=== PATIENT | male | born 1980 | race Caucasian/White ===

== ENCOUNTER → 2016-03-30 | Outpatient (CLI) | payer MEDICARE ==
[~2016-03-30] MED LIST: /QUET10TA OR; DICL50TA2 PO; EFFE150C OR; EFFE37.527 OR; HYDR-3719 PO; LAMI25TA OR; LISI40TAB PO; LYRI100C10 PO; METH75TA PO; PERC5TAB6 PO; PRAZ1CAP PO; PROT20TA11 PO; SERO50TA PO; SERT25TA85 PO; TIZA4CAP3 PO; TOPA100T8 PO; TRAM50TA2 OR; TRAM50TA2 PO; TYLE325T5 PO; VOLT100T2 PO; ZANA4TAB PO; [UNRECOGNIZED DRUG - CODE] PO; [UNRECOGNIZED DRUG - REMARK]
--- NOTE | 2016-04-03 00:17 | ECWPNPC ---
PATIENT NAME: EMMY SHEA : 1980 GENDER: MALE VISIT DATE: 03/30/2016 DISCHARGE DATE: 03/30/16 1346 VISIT LOCKED DATE TIME: PHYSICIAN: BERNA RAMIREZ RESOURCE: BERNA RAMIREZ REASON FOR APPOINTMENT 1. W/C NECK PAIN HISTORY OF PRESENT ILLNESS HISTORY OF PRESENT ILLNESS: PAIN THE PATIENT DESCRIBES THE PAIN... 35 YEAR OLD MALE PATIENT WITH HISTORY OF CHRONIC NECK PAIN. PATIENT DESCRIBES THE PAIN ACHING, BURNING, SHARP, STABBING, THROBBING, SHOOTING, AND HAVING IT ALL THE TIME WITH A PAIN SCORE OF 2/10 TODAY WHILE USING THE MEDICATIONS. MR. SHEA WAS HURT IN A WORK RELATED INJURY WHEN A PIPE FELL ON HIS NECK ON 08/26/12. PATIENT IS CURRENTLY USING NORCO, TIZANIDINE, AND IBUPROFEN AND STATES THAT THE MEDICATION DOES HELP TO TAKE THE EDGE OFF. MRS. SHEA STATES THAT THE MEDICATION KEEPS HIM FUNCTIONAL AND ABLE TO DO EVERY DAY ACTIVITIES. PATIENT REPORTS HAVING NUMBNESS DOWN BOTH ARMS BUT MAINLY THE RIGHT. PATIENT STATES THAT LOOKING IN CERTAIN DIRECTIONS FOR EXTENDED PERIODS OF TIME INCREASES THE PAIN IN HIS CERVICAL AREA. AT THIS TIME THE ONLY THING THAT HELPS TO RELIEVE THE PAIN IS INTERVENTIONS AND MEDICATION MANAGEMENT. PATIENT DENIES UNEXPLAINABLE WEIGHT LOSS, FEVER, CHILLS, NEW CHANGES ON HIS URINARY OR BOWEL CONTROL. FALL RISK SCREENING: SCREENING :NO FALLS IN THE PAST YEAR CURRENT MEDICATIONS TAKING NORCO 10-325 MG TABLET 1 TABLET ORALLY CODE D CHRONIC PAIN EVERY 8 HRS PRN PAIN MDD=3, NOTES: 10-04-15 0900 WITH SIP WATER TAKING TIZANIDINE HCL 4 MG CAPSULE 1 TABLET NEEDED ORALLY FOR SPASMS AND PAIN BEFORE BEDTIME CAN REPEAT IN HRS MDD2, NOTES: 10-03-15 TAKING IBUPROFEN 800 MG TABLET 1 TABLET ORALLY WITH FOOD EVERY 6 HOURS NEEDED FOR PAIN MDD3, NOTES: 10-02 TAKING SERTRALINE HCL 50 MG TABLET 1 TABLET ORALLY ONCE A DAY TAKING ANUSOL-HC 2.5 % CREAM 1 APPLICATION TO AFFECTED AREA RECTAL TWICE A DAY TAKING LISINOPRIL 10 MG TABLET 1 TABLET ORALLY TWICE DAILY NOT-TAKING HYDROXYZINE HCL 50 MG TABLET 3 TABLETS NEEDED ORALLY ONCE BEFORE BED MEDICATION LIST REVIEWED AND RECONCILED WITH THE PATIENT PAST MEDICAL HISTORY HYPERTENSION HERNIATED DISC L5-S1 WITH RADICULOPATHY PTSD AVM OF RIGHT PULMONARY ARTERY ANXIETY DEPRESSION ALLERGIES MORPHINE: SEVERE ABDOMINAL PAIN: SIDE EFFECTS SURGICAL HISTORY COLONOSCOPY 2011-POSITIVE FOR HEMRRHOIDS CERVICAL DISECTOMY C5-C6 C6-C7 2012 CERVICAL C4-C5 2015 FAMILY HISTORY NO FAMILY HISTORY DOCUMENTED. SOCIAL HISTORY GENERAL: TOBACCO USE ARE YOU A:NONSMOKER CHEWS LEARNING BARRIERS / SPECIAL NEEDS ORIENTED TO PLAN OF CARE: PATIENT, PAIN MANAGEMENT PATIENT, ORIENTED TO PLAN OF CARE: PATIENT, PAIN MANAGEMENT PATIENT. NEW PATIENT PAIN DIARY TODAY'S VISITNOTES FROM 0-10, WHAT LEVEL IS YOUR PAIN TODAY?0 PAIN CLINIC PFS, CLERGY, PUBLIC HEALTH REFERRALS PFS REFERRAL NEEDED?NO CLERGY REFERRAL NEEDED?NO PUBLIC HEALTH REFERRAL NEEDED?NO WAS THE PROVIDER NOTIFIED OF ANY PERTINENT INFO?NO PFS REFERRAL NEEDED?NO CLERGY REFERRAL NEEDED?NO PUBLIC HEALTH REFERRAL NEEDED?NO WAS THE PROVIDER NOTIFIED OF ANY PERTINENT INFO?NO HOSPITALIZATION/MAJOR DIAGNOSTIC PROCEDURE NO HOSPITALIZATION HISTORY. REVIEW OF SYSTEMS CONSTITUTIONAL: ANY CHANGE IN YOUR MEDICAL CONDITION? NO . CHILLS NO . FEVER NO . INFECTION: DO YOU HAVE NEW INFECTIONS? NO . DO YOU HAVE HISTORY OF MRSA? NO . MUSCULOSKELETAL: ANY NEW PATTERNS OF PAIN OR NUMBNESS? NO . GASTROENTEROLOGY: ANY NEW CHANGE IN BOWEL CONTROL? NO . GENITOURINARY: ANY NEW CHANGE IN BLADDER CONTROL? NO . IS THERE A CHANCE YOU COULD BE ? NO . HEMATOLOGY/LYMPH: DO YOU TAKE ANY BLOOD THINNERS? (FOR EXAMPLE- COUMADIN, PLAVIX, AGGRENOX, PLATEL, PRADAXA, OR XARELTO) NO . WHEN WAS YOUR LAST DOSE? DATE: TIME: . NEUROLOGY: HAVE YOU FALLEN IN THE PAST 6 MONTHS? YES PT STATES THAT WITH HIS NEUROPATHY THAT IT IS HARD TO GRAB THE RAILING WHEN GOING DOWN THE STAIRS AT NIGHT AND THAT IS WHY HE HAS HAD THE FALLS . ANY NEW EXTREMITY NUMBNESS OR WEAKNESS? NO . CARDIOLOGY: DO YOU HAVE A PACEMAKER OR DEFIBRILLATOR? NO . RESPIRATORY: HAVE YOU BEEN SICK IN THE PAST WEEK? NO . FEVER NO . FLU LIKE SYMPTOMS? NO . COUGH NO . INTEGUMENTARY: DO YOU HAVE ANY RASHES OR OPEN SORES? NO . ALLERGIC/IMMUNO: ARE YOU ALLERGIC TO SHELLFISH OR IV DYE? NO . ANY NEW ALLERGIES? NO . PSYCHIATRIC: DO YOU HAVE THOUGHTS OF HURTING YOURSELF OR SOMEONE ELSE? NO . ARE YOU ABUSED, NEGLECTED, OR IN AN UNSAFE ENVIRONMENT? NO . ENDOCRINOLOGY: ARE YOU DIABETIC? NO . OTHER: DO YOU NEED ANY PRESCRIPTIONS? YES INQUIRING ABOUT CHANGING PAIN MEDS/DIARHEA . IF YES, PLEASE LIST: ____ . ANY NEW PROBLEMS WITH YOUR MEDICATIONS? NO . WHEN DID YOU LAST EAT? ____ . WHEN DID YOU LAST DRINK? ____ . WHAT DID YOU LAST DRINK? ____ . NAME OF PERSON DRIVING YOU HOME? ____ . DO YOU HAVE ANY OTHER QUESTIONS OR CONCERNS NO . REVIEWED BY: PROVIDER: BERNA RAMIREZ MD . VITAL SIGNS WT 315 LBS, HT 72 IN, BMI 42.72 INDEX, BP 149/86 MM HG, HR 98 /MIN, RR 18 /MIN, TEMP 97.4 F, OXYGEN SAT % 98%, NA INITIALS SC 10:03. EXAMINATION : PATIENT IS ALERT O X 3 AND COOPERATIVE. TENDERNESS IN THE RIGHT CERVICAL AREA AND PARASPINAL MUSCLE GROUP. MRI OF THE CERVICAL SPINE DONE ON 11/16/15 SHOWS SPINAL FUSION AT C5-C7, SPONDYLOSIS AT C4-C5 THROUGH C7-T1, AND A DISC PROTRUSION AT C7-T1. 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, CERVICAL REGION - M47.812 SPONDYLOSIS WITHOUT MYELOPATHY OR RADICULOPATHY, CERVICOTHORACIC REGION - M47.813 TREATMENT POSTLAMINECTOMY SYNDROME, NOT ELSEWHERE CLASSIFIED START OXYCODONE HCL TABLET, 5 MG, 1 TABLET, ORALLY CODE D CHRONIC PAIN, EVERY 6 HRS NEEDED FOR PAIN MDD3, 60 DAYS, 180, REFILLS 0 REFILL TIZANIDINE HCL TABLET, 4 MG, 1 TABLET NEEDED, ORALLY, BEFORE BEDTIME CAN REPEAT IN 4 HRS MDD2, 30 DAY(S), 60, REFILLS 2, NOTES: 10-03-15 REFILL IBUPROFEN TABLET, 800 MG, 1 TABLET, ORALLY WITH FOOD, EVERY 6 HOURS NEEDED FOR PAIN MDD3, 30 DAY(S), 75, REFILLS 2, NOTES: 10-02 NOTES: WE DISCUSSED SEVERAL ISSUES WITH MR. SHEA'S PAIN MANAGEMENT CASE. AT THIS TIME THE PATIENT WILL START USING OXYCODONE INSTEAD OF THE HYDROCODONE. PATIENT REPORTED HAVING DIARRHEA SINCE USING THE HYDROCODONE SO WE WILL TRY THE OXYCODONE TO SEE IF WILL AID WITH THE DIARRHEA. PATIENT WAS ADVISED TO BE VERY CAREFUL WITH THE MEDICATION. PATIENT DENIES ABUSE OF THE MEDICATION, DENIES USE OF ILLEGAL SUBSTANCES, AND STATES THAT HE IS ONLY USING THE MEDICATION FOR PAIN MANAGEMENT AT THIS TIME. URINE TOXICOLOGY DONE IN APRIL 2015 SHOWS CONSISTENT RESULTS WITH THE PATIENT'S MEDICATION LIST. WE DISCUSSED INTERVENTIONS AND AT THIS TIME WE WILL MOVE FORWARD WITH THE CERVICAL FACET BLOCK ONCE WE HAVE APPROVAL FROM THE INSURANCE COMPANY. WE DISCUSSED THE RISKS, BENEFITS, AND ALTERNATIVES TO THE INJECTION AND THE PATIENT WOULD LIKE TO PROCEED AT THIS TIME. PROCEDURES PN WORKMANS' COMP OPINION IN YOUR OPINION, WAS THE INCIDENT THAT THE PATIENT DESCRIBED THE COMPETENT MEDICAL CAUSE OF THIS INJURY/ILLNESS? YES ARE THE PATIENT'S COMPLAINTS CONSISTENT WITH HIS/HER HISTORY OF THE INJURY/ILLNESS? YES IS THE PATIENT'S HISTORY OF THE INJURY/ILLNESS CONSISTENT WITH YOUR OBJECTIVE FINDING? YES WHAT IS THE PERCENTAGE OF TEMPORARY IMPAIRMENT? TOTAL = 100% IS THE PATIENT WORKING? NO DOCTOR ON SITE: BERNA NASH MD PREVENTIVE MEDICINE PAIN CLINIC TEACHING: MEDICATIONS MEDICATION CHANGE PT STARTED ON OXYCODONE AND D/C HYDROCODONE. PROCEDURE TEACHING PRE/PROCEDURE EDUCATION PROVIDED/PENDING AUTHORIZATION. PROCEDURE CODES FA211 ESTABILISHED PATIENT [facility] FACILITY CHARGE G8427 DOC MEDS VERIFIED W/PT OR RE G8730 PAIN ASSESS POS TOOL F/U PLAN DOC FOLLOW UP 3 WEEKS ELECTRONICALLY SIGNED BY BERNA RAMIREZ MD ON 04/01/2016 AT 07:28 PM EST DISCLAIMER : THIS IS A VISIT SUMMARY EXTRACTED FROM THE [employer] CHART. IT IS NOT A COPY OF THE [employer] PROGRESS NOTE. VANE
== END ==
LOC: M PAIN 10:00
PROVIDERS: ATTEND Anesthesiology
DX: Z09 Encounter for follow-up examination after completed treatment for conditions other than malignant neoplasm (principal); G89.29 Other chronic pain; M96.1 Postlaminectomy syndrome, not elsewhere classified; M47.812 Spondylosis without myelopathy or radiculopathy, cervical region; M47.813 Spondylosis without myelopathy or radiculopathy, cervicothoracic region; I10 Essential (primary) hypertension; I28.8 Other diseases of pulmonary vessels; F43.10 Post-traumatic stress disorder, unspecified; F41.9 Anxiety disorder, unspecified; Z88.5 Allergy status to narcotic agent; Z79.891 Long term (current) use of opiate analgesic; Z79.1 Long term (current) use of non-steroidal anti-inflammatories (NSAID); Z79.899 Other long term (current) drug therapy

== ENCOUNTER 2016-05-12 18:45 | Emergency (ER) | payer MEDICARE ==
[~2016-05-12] VITALS: Ht 185.4 cm; Wt 122.5 kg
[~2016-05-12 18:45] MED LIST changes: +SERT25TA PO; -SERT25TA85 PO
[2016-05-12] MEDS ORDERED: TIZA4CAP3 (18:51)
[2016-05-12] MEDS ORDERED: OXAY1TAB PO (18:51)
[2016-05-12] MEDS ORDERED: LISI10TA4 (18:51)
[2016-05-12] MEDS ORDERED: ONDANSETRON 4MG/2ML VIAL (J2405) IV ONE (19:15)
[2016-05-12] MEDS ORDERED: NS 1,000 ML IV ONE (19:15)
[2016-05-12] MEDS ORDERED: MORPHINE 4 MG/ML 1ML SYRINGE IV ONE (19:15)
[2016-05-12 19:24] LABS: BASO % 0.4 % (0.0-1.0); EOS # 0.1 K/mm3 (0.0-0.50); EOS % 1.5 % (0.0-3.0); LARGE UNSTAINED CELL # 0.2 K/mm3 (0.0-0.4); LARGE UNSTAINED CELL % 1.8 % (0.0-4.0); LYMPH # 2.4 K/mm3 (1.5-4.5); LYMPH % 23.3 % (24.0-44.0); MEAN CORPUSCULAR HEMOGLOBIN 27.6 pg (27.0-33.0); MEAN CORPUSCULAR HGB CONC 31.7 g/dl (32.0-36.5); MONO # 0.6 K/mm3 (0.0-0.8); MONO % 6.1 % (0.0-5.0); NEUTROPHILS # 6.3 K/mm3 (1.8-7.7); NEUTROPHILS % 66.9 % (36.0-66.0); PLATELET COUNT, AUTOMATED 373 k/mm3 (150-450); RED CELL DISTRIBUTION WIDTH 13.1 % (11.5-14.5); WHITE BLOOD COUNT 9.4 K/mm3 (4.0-10.0)
[2016-05-12 19:45] LABS: ALBUMIN 4.3 GM/DL (3.2-5.2); ALBUMIN/GLOBULIN RATIO 1.26 (1.00-1.93); ALKALINE PHOSPHATASE 111 U/L (45-117); ALT/SGPT 61 U/L (12-78); AMYLASE 100 U/L (25-115); ANION GAP 11 MEQ/L (8-16); AST/SGOT 26 U/L (15-37); BILIRUBIN,DIRECT < 0.1 MG/DL (0.0-0.2); BILIRUBIN,TOTAL 0.3 MG/DL (0.2-1.0); BLOOD UREA NITROGEN 17 MG/DL (7-18); CALCIUM LEVEL 8.9 MG/DL (8.5-10.1); CARBON DIOXIDE LEVEL 24 MEQ/L (21-32); CHLORIDE LEVEL 106 MEQ/L (98-107); CREATININE FOR GFR 0.92 MG/DL (0.70-1.30); GLOMERULAR FILTRATION RATE > 60.0 (>60); GLUCOSE, FASTING 90 MG/DL (70-105); SODIUM LEVEL 141 MEQ/L (136-145); TOTAL PROTEIN 7.7 GM/DL (6.4-8.2)
--- NOTE | 2016-05-12 20:10 | REP ---
Clinical: Right upper quadrant pain. Technique: Real time antunez scale ultrasound examination using curved array transducer. Findings: Liver and visualized pancreas are normal in contour, size, echogenicity without focal hepatic or pancreatic lesions identified. The gallbladder is contracted, but without obvious gallstones, wall thickening or pericholecystic fluid. No biliary ductal dilatation is appreciated and the common bile duct measures 3.4 mm diameter. The right kidney is normal in reniform shape without hydronephrosis and measures 12.7 x 5.8 x 5.2 cm. Impression: Contracted gallbladder without obvious gallstones or sonographic evidence to suggest acute cholecystitis. Clinical correlation recommended. Signed by Néstor Reid MD 05/12/2016 08:01 P
[2016-05-12] MEDS ORDERED: MORPHINE 2 MG/ML 1ML SYRINGE IV ONE (21:00)
[2016-05-12] MEDS ORDERED: ZOFR4TAB3 PO (21:25)
[2016-05-12] MEDS ORDERED: KETO10TAB PO (21:25)
[2016-05-12 21:52] VITALS: BP 129/81
== END 2016-05-12 21:53 | disposition home or self-care (01) ==
LOC: M ED 19:34
DX: K80.50 Calculus of bile duct without cholangitis or cholecystitis without obstruction (principal); I10 Essential (primary) hypertension; F33.9 Major depressive disorder, recurrent, unspecified; Z79.899 Other long term (current) drug therapy
CPT/HCPCS: 76705; 80048; 80076; 81001; 82150; 83690; 85025; 96361; 96374; 96375; 96376; 99283; J2405

== ENCOUNTER → 2016-05-25 | Outpatient (CLI) | payer OTHER, MEDICARE ==
[~2016-05-25] MED LIST changes: +BUPIVACAINE HCL 0.25% 30 ML VIAL As Ordered ONE; +ISOVUE-M 300 61% 15ML VIAL (Q9967) As Ordered ONE; +KETO10TAB PO; +LIDOCAINE 1% SDV INJ 30 ML VIAL As Ordered ONE; +LISI10TA4; +OXAY1TAB PO; +TIZA4CAP3; +TRIAMCINOLONE ACETONIDE SUSP 40 MG/ML VIAL (J3301) As Ordered ONE; +ZOFR4TAB3 PO
--- NOTE | 2016-06-03 23:26 | ECWPNPC ---
PATIENT NAME: EMMY SHEA : 1980 GENDER: MALE VISIT DATE: 05/25/2016 DISCHARGE DATE: 05/25/16 1403 VISIT LOCKED DATE TIME: PHYSICIAN: BERNA RAMIREZ RESOURCE: BERNA RAMIREZ REASON FOR APPOINTMENT 1. NECK PAIN W/C HISTORY OF PRESENT ILLNESS HISTORY OF PRESENT ILLNESS: PAIN THE PATIENT DESCRIBES THE PAIN... 35 YEAR OLD MALE PATIENT WITH HISTORY OF CHRONIC NECK PAIN. PATIENT DESCRIBES THE PAIN ACHING, BURNING, SHARP, STABBING, THROBBING, SHOOTING, AND HAVING IT ALL THE TIME WITH A PAIN SCORE OF 2/10 TODAY WHILE USING THE MEDICATIONS. MR. SHEA WAS HURT IN A WORK RELATED INJURY WHEN A PIPE FELL ON HIS NECK ON 08/26/12 WHILE WORKING AT [employer]. PATIENT IS CURRENTLY USING OXYCODONE, TIZANIDINE, AND IBUPROFEN AND STATES THAT THE MEDICATION DOES HELP TO TAKE THE EDGE OFF. MRS. SHEA STATES THAT THE MEDICATION KEEPS HIM FUNCTIONAL AND ABLE TO DO EVERY DAY ACTIVITIES. PATIENT REPORTS HAVING NUMBNESS DOWN BOTH ARMS BUT MAINLY THE RIGHT. PATIENT STATES THAT LOOKING IN CERTAIN DIRECTIONS FOR EXTENDED PERIODS OF TIME INCREASES THE PAIN IN HIS CERVICAL AREA. AT THIS TIME THE ONLY THING THAT HELPS TO RELIEVE THE PAIN IS MEDICATION MANAGEMENT. PATIENT DENIES UNEXPLAINABLE WEIGHT LOSS, FEVER, CHILLS, NEW CHANGES ON HIS URINARY OR BOWEL CONTROL. FALL RISK SCREENING: SCREENING :NO FALLS IN THE PAST YEAR CURRENT MEDICATIONS TAKING ANUSOL-HC 2.5 % CREAM 1 APPLICATION TO AFFECTED AREA RECTAL TWICE A DAY TAKING LISINOPRIL 10 MG TABLET 1 TABLET ORALLY TWICE DAILY, NOTES: 05/24/16 0800 TAKING TIZANIDINE HCL 4 MG TABLET 1 TABLET NEEDED ORALLY BEFORE BEDTIME CAN REPEAT IN 4 HRS MDD2, NOTES: 05/24/16 2200 TAKING OXYCODONE HCL 5 MG TABLET 1 TABLET ORALLLY EVERY 6 HRS NEEDED FOR PAIN MDD3, NOTES: 05/24/16 0600 TAKING ZANTAC 150 MG TABLET 1 TABLET AT BEDTIME ORALLY ONCE A DAY NOT-TAKING IBUPROFEN 800 MG TABLET 1 TABLET ORALLY WITH FOOD EVERY 6 HOURS NEEDED FOR PAIN MDD3 NOT-TAKING HYDROXYZINE HCL 50 MG TABLET 3 TABLETS NEEDED ORALLY ONCE BEFORE BED DISCONTINUED NORCO 10-325 MG TABLET 1 TABLET ORALLY CODE D CHRONIC PAIN EVERY 8 HRS PRN PAIN MDD=3 DISCONTINUED SERTRALINE HCL 50 MG TABLET 1 TABLET ORALLY ONCE A DAY MEDICATION LIST REVIEWED AND RECONCILED WITH THE PATIENT PAST MEDICAL HISTORY HYPERTENSION HERNIATED DISC L5-S1 WITH RADICULOPATHY PTSD AVM OF RIGHT PULMONARY ARTERY ANXIETY DEPRESSION ALLERGIES MORPHINE: SEVERE ABDOMINAL PAIN: SIDE EFFECTS SURGICAL HISTORY COLONOSCOPY 2010-POSITIVE FOR HEMRRHOIDS CERVICAL DISECTOMY C5-C6 C6-C7 2013 CERVICAL C4-C5 2015 FAMILY HISTORY NO FAMILY HISTORY DOCUMENTED. SOCIAL HISTORY GENERAL: PAIN CLINIC PFS, CLERGY, PUBLIC HEALTH REFERRALS CLERGY REFERRAL NEEDED?NO WAS THE PROVIDER NOTIFIED OF ANY PERTINENT INFO?NO PFS REFERRAL NEEDED?NO PUBLIC HEALTH REFERRAL NEEDED?NO PATIENT: ____. HOSPITALIZATION/MAJOR DIAGNOSTIC PROCEDURE NO HOSPITALIZATION HISTORY. REVIEW OF SYSTEMS CONSTITUTIONAL: ANY CHANGE IN YOUR MEDICAL CONDITION? YES PT REPORTS FLARE UP OF CHOLECYSTITIS, SEEING DR. MCCAULEY, TO HAVE FRANK UPON RETURN FROM VACATION. REPORTED TO DR. RAMIREZ. . CHILLS NO . FEVER NO . INFECTION: DO YOU HAVE NEW INFECTIONS? NO . DO YOU HAVE HISTORY OF MRSA? NO . MUSCULOSKELETAL: ANY NEW PATTERNS OF PAIN OR NUMBNESS? NO . GASTROENTEROLOGY: ANY NEW CHANGE IN BOWEL CONTROL? NO . GENITOURINARY: ANY NEW CHANGE IN BLADDER CONTROL? NO . IS THERE A CHANCE YOU COULD BE ? NO . HEMATOLOGY/LYMPH: DO YOU TAKE ANY BLOOD THINNERS? (FOR EXAMPLE- COUMADIN, PLAVIX, AGGRENOX, PLATEL, PRADAXA, OR XARELTO) NO . WHEN WAS YOUR LAST DOSE? DATE: TIME: . NEUROLOGY: HAVE YOU FALLEN IN THE PAST 6 MONTHS? NO . ANY NEW EXTREMITY NUMBNESS OR WEAKNESS? NO . CARDIOLOGY: DO YOU HAVE A PACEMAKER OR DEFIBRILLATOR? NO . RESPIRATORY: HAVE YOU BEEN SICK IN THE PAST WEEK? YES PT REPORTS NON-PRODUCTIVE COUGH, DENIES FEVER, SORE THROAT, ACHES OR OTHER SYMPTOMS. REPORTED TO DR. RAMIREZ. . FEVER NO . FLU LIKE SYMPTOMS? NO . COUGH NO . INTEGUMENTARY: DO YOU HAVE ANY RASHES OR OPEN SORES? NO . ALLERGIC/IMMUNO: ARE YOU ALLERGIC TO SHELLFISH OR IV DYE? NO . ANY NEW ALLERGIES? NO . PSYCHIATRIC: DO YOU HAVE THOUGHTS OF HURTING YOURSELF OR SOMEONE ELSE? NO . ARE YOU ABUSED, NEGLECTED, OR IN AN UNSAFE ENVIRONMENT? NO . ENDOCRINOLOGY: ARE YOU DIABETIC? NO . OTHER: DO YOU NEED ANY PRESCRIPTIONS? NO . IF YES, PLEASE LIST: ____ . ANY NEW PROBLEMS WITH YOUR MEDICATIONS? NO . WHEN DID YOU LAST EAT? ____05/24/16 1600 . WHEN DID YOU LAST DRINK? ____05/24/16 2200 . WHAT DID YOU LAST DRINK? ____JUICE . NAME OF PERSON DRIVING YOU HOME? ____ . DO YOU HAVE ANY OTHER QUESTIONS OR CONCERNS NO . REVIEWED BY: PROVIDER: BERNA RAMIREZ MD . VITAL SIGNS WT 306.8 LBS, HT 72 IN, BMI 41.61 INDEX, BP 133/78 MM HG, HR 84 /MIN, RR 18 /MIN, TEMP 97.8 F, OXYGEN SAT % 98%, SAFE IN ENV? (Y/N) YES, NA INITIALS AR 09:58, REVIEWED BY: HECTOR. EXAMINATION : PATIENT IS ALERT O X 3 AND COOPERATIVE. TENDERNESS IN THE RIGHT CERVICAL AREA AND PARASPINAL MUSCLE GROUP. MRI OF THE CERVICAL SPINE DONE ON 11/16/15 SHOWS SPINAL FUSION AT C5-C7, SPONDYLOSIS AT C4-C5 THROUGH C7-T1, AND A DISC PROTRUSION AT C7-T1. 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 SHEA'S PAIN MANAGEMENT CASE. PATIENT WILL CONTINUE WITH THE SAME MEDICATION REGIME BEFORE. PATIENT DENIES ABUSE OF ANY MEDICATION, DENIES USE OF ILLEGAL SUBSTANCES, AND STATES THAT HE IS ONLY USING THE MEDICATION FOR PAIN MANAGEMENT. PATIENT USING THE OXYCODONE FOR SOMATIC PAIN AND TIZANIDINE FOR THE MUSCLE SPASMS. URINE TOXICOLOGY REPORT DONE ON 03/30/16 SHOWS CONSISTENT RESULTS WITH THE PATIENT'S MEDICATION LIST. PATIENT BROUGHT ALL MEDICATIONS TO TODAY'S VISIT IN THEIR ORIGINAL BOTTLES. PATIENT REPORTS INTERVENTIONS NOT AIDING IN PAIN RELIEF SO NONE WILL BE HELD AT THIS TIME. PATIENT WILL FOLLOW UP IN 7 WEEKS BUT WAS ADVISED TO CALL IF HIS PAIN WORSENS. INSTRUCTIONS WERE GIVEN, QUESTIONS WERE ANSWERED, PATIENT REPORTS UNDERSTANDING AND AGREES WITH THE PLAN. I, SHAQ STREET, DOCUMENTED THE ABOVE INFORMATION ACTING A SCRIBE FOR DR. RAMIREZ. I HAVE REVIEWED THE ABOVE DOCUMENT, WRITTEN BY SHAQ COXIBMeryl AND I VERIFY THAT IT IS ACCURATE. PROCEDURES PN WORKMANS' COMP OPINION IN YOUR OPINION, WAS THE INCIDENT THAT THE PATIENT DESCRIBED THE COMPETENT MEDICAL CAUSE OF THIS INJURY/ILLNESS? YES ARE THE PATIENT'S COMPLAINTS CONSISTENT WITH HIS/HER HISTORY OF THE INJURY/ILLNESS? YES IS THE PATIENT'S HISTORY OF THE INJURY/ILLNESS CONSISTENT WITH YOUR OBJECTIVE FINDING? YES WHAT IS THE PERCENTAGE OF TEMPORARY IMPAIRMENT? TOTAL = 100% IS THE PATIENT WORKING? NO DOCTOR ON SITE: BERNA NASH MD DIAGNOSTIC IMAGING [facility] FACET BLOCK (PAIN)[id number] PROCEDURE CODES G8427 DOC MEDS VERIFIED W/PT OR RE G8730 PAIN ASSESS POS TOOL F/U PLAN DOC FA211 ESTABILISHED PATIENT [facility] FACILITY CHARGE DISPOSITION & COMMUNICATION FOLLOW UP 7 WEEKS ELECTRONICALLY SIGNED BY BERNA RAMIREZ MD ON 06/03/2016 AT 05:25 PM EDT DISCLAIMER : THIS IS A VISIT SUMMARY EXTRACTED FROM THE [employer] CHART. IT IS NOT A COPY OF THE [employer] PROGRESS NOTE. MTDD
== END ==
LOC: M PAIN 09:00
PROVIDERS: ATTEND Anesthesiology
DX: M96.1 Postlaminectomy syndrome, not elsewhere classified (principal); M47.812 Spondylosis without myelopathy or radiculopathy, cervical region; M47.813 Spondylosis without myelopathy or radiculopathy, cervicothoracic region; M50.13 Cervical disc disorder with radiculopathy, cervicothoracic region; G89.29 Other chronic pain; Z79.891 Long term (current) use of opiate analgesic; Z79.899 Other long term (current) drug therapy; I10 Essential (primary) hypertension; F43.12 Post-traumatic stress disorder, chronic; F41.9 Anxiety disorder, unspecified; F32.9 Major depressive disorder, single episode, unspecified; Q25.5 Atresia of pulmonary artery
CPT/HCPCS: G0463; J3301; Q9967

== ENCOUNTER → 2016-07-17 | Outpatient (CLI) | payer MEDICARE ==
[~2016-07-17] MED LIST changes: -BUPIVACAINE HCL 0.25% 30 ML VIAL As Ordered ONE; -ISOVUE-M 300 61% 15ML VIAL (Q9967) As Ordered ONE; -LIDOCAINE 1% SDV INJ 30 ML VIAL As Ordered ONE; -TRIAMCINOLONE ACETONIDE SUSP 40 MG/ML VIAL (J3301) As Ordered ONE
--- NOTE | 2016-07-29 23:43 | ECWPNPC ---
PATIENT NAME: EMMY SHEA : 1980 GENDER: MALE VISIT DATE: 07/17/2016 DISCHARGE DATE: 07/17/16937 VISIT LOCKED DATE TIME: PHYSICIAN: BERNA RAMIREZ RESOURCE: BERNA RAMIREZ REASON FOR APPOINTMENT 1. NECK PAIN W/C HISTORY OF PRESENT ILLNESS HISTORY OF PRESENT ILLNESS: PAIN THE PATIENT DESCRIBES THE PAIN... 35 YEAR OLD MALE PATIENT WITH HISTORY OF CHRONIC NECK PAIN. PATIENT DESCRIBES THE PAIN ACHING, BURNING, SHARP, STABBING, THROBBING, SHOOTING, AND HAVING IT ALL THE TIME WITH A PAIN SCORE OF 3/10 TODAY WHILE USING THE MEDICATIONS. MR. SHEA WAS HURT IN A WORK RELATED INJURY WHEN A PIPE FELL ON HIS NECK ON 08/26/12 WHILE WORKING AT [employer]. PATIENT IS CURRENTLY USING OXYCODONE, TIZANIDINE, AND IBUPROFEN AND STATES THAT THE MEDICATION DOES HELP TO TAKE THE EDGE OFF. MRS. SHEA STATES THAT THE MEDICATION KEEPS HIM FUNCTIONAL AND ABLE TO DO EVERY DAY ACTIVITIES. PATIENT REPORTS HAVING NUMBNESS DOWN BOTH ARMS BUT MAINLY THE RIGHT. PATIENT STATES THAT LOOKING IN CERTAIN DIRECTIONS FOR EXTENDED PERIODS OF TIME INCREASES THE PAIN IN HIS CERVICAL AREA. AT THIS TIME THE ONLY THING THAT HELPS TO RELIEVE THE PAIN IS MEDICATION MANAGEMENT. MR. SHEA REPORTS MOVING IN A WEEK AND WOULD LIKE MEDICATIONS TO LAST HIM UNTIL HE FINDS A NEW PROVIDER. PATIENT DENIES UNEXPLAINABLE WEIGHT LOSS, FEVER, CHILLS, NEW CHANGES ON HIS URINARY OR BOWEL CONTROL. FALL RISK SCREENING: SCREENING :NO FALLS IN THE PAST YEAR CURRENT MEDICATIONS TAKING OXYCODONE HCL 5 MG TABLET 1 TABLET ORALLLY (CODE D FOR CHRONIC PAIN ) EVERY 6 HRS NEEDED FOR PAIN MDD3, NOTES: 05/24/16 0600 TAKING TIZANIDINE HCL 4 MG TABLET 1 TABLET NEEDED ORALLY BEFORE BEDTIME CAN REPEAT IN 4 HRS MDD2, NOTES: 05/24/16 2200 TAKING LISINOPRIL 20 MG TABLET 1 TABLET ORALLY BID NOT-TAKING ANUSOL-HC 2.5 % CREAM 1 APPLICATION TO AFFECTED AREA RECTAL TWICE A DAY NOT-TAKING ERYTHROMYCIN 5 MG/GM OINTMENT 1 APPLICATION OPHTHALMIC FOUR TIMES A DAY MEDICATION LIST REVIEWED AND RECONCILED WITH THE PATIENT PAST MEDICAL HISTORY HYPERTENSION HERNIATED DISC L5-S1 WITH RADICULOPATHY PTSD AVM OF RIGHT PULMONARY ARTERY ANXIETY DEPRESSION ALLERGIES MORPHINE: SEVERE ABDOMINAL PAIN: SIDE EFFECTS SURGICAL HISTORY COLONOSCOPY 2011-POSITIVE FOR HEMRRHOIDS CERVICAL DISECTOMY C5-C6 C6-C7 2012 CERVICAL C4-C5 2015 FAMILY HISTORY FATHER: ALIVE MOTHER: ALIVE, DIAGNOSED WITH OTHER SOCIAL HISTORY GENERAL: TOBACCO USE ARE YOU A:NONSMOKER CHEWS VAPORNO E-CIGARETTENO ALCOHOL SCREENING DID YOU HAVE A DRINK CONTAINING ALCOHOL IN THE PAST YEAR?YES HOW OFTEN DID YOU HAVE A DRINK CONTAINING ALCOHOL IN THE PAST YEAR?MONTHLY OR LESS (1 POINT) HOW MANY DRINKS DID YOU HAVE ON A TYPICAL DAY WHEN YOU WERE DRINKING IN THE PAST YEAR?1 OR 2 (0 POINTS) HOW OFTEN DID YOU HAVE SIX OR MORE DRINKS ON ONE OCCASION IN THE PAST YEAR?NEVER (0 POINTS) POINTS1 INTERPRETATIONNEGATIVE RECREATIONAL DRUG USE DRUG USE?NO CAFFEINE CAFFEINE USE?NO HIV / HEP-C SCREENING HIV TEST OFFERED TO PATIENT:YES DATE OFFERED:06/19/2016 TEST ACCEPTED:NO REASON:PATIENT DECLINED HEP-C TEST OFFERED TO PATIENT:NO LEARNING BARRIERS / SPECIAL NEEDS CHANGE FROM LAST VISIT?NO BARRIERS TO LEARNING?NO HEARING IMPAIRED?NO VISION IMPAIRED?NO COGNITIVELY IMPAIRED?NO READINESS TO LEARN?YES LEARNING PREFERENCES?NO LEARNING CAPABILITIES PRESENT?YES EMOTIONAL BARRIERS?NO SPECIAL DEVICES?NO 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 HOSPITALIZATION/MAJOR DIAGNOSTIC PROCEDURE NO HOSPITALIZATION HISTORY. REVIEW OF SYSTEMS CONSTITUTIONAL: ANY CHANGE IN YOUR MEDICAL CONDITION? NO . CHILLS NO . FEVER NO . INFECTION: DO YOU HAVE NEW INFECTIONS? NO . DO YOU HAVE HISTORY OF MRSA? NO . MUSCULOSKELETAL: ANY NEW PATTERNS OF PAIN OR NUMBNESS? NO . GASTROENTEROLOGY: ANY NEW CHANGE IN BOWEL CONTROL? NO . GENITOURINARY: ANY NEW CHANGE IN BLADDER CONTROL? NO . IS THERE A CHANCE YOU COULD BE ? NO . HEMATOLOGY/LYMPH: DO YOU TAKE ANY BLOOD THINNERS? (FOR EXAMPLE- COUMADIN, PLAVIX, AGGRENOX, PLATEL, PRADAXA, OR XARELTO) NO . WHEN WAS YOUR LAST DOSE? DATE: TIME: . NEUROLOGY: HAVE YOU FALLEN IN THE PAST 6 MONTHS? NO . ANY NEW EXTREMITY NUMBNESS OR WEAKNESS? NO . CARDIOLOGY: DO YOU HAVE A PACEMAKER OR DEFIBRILLATOR? NO . RESPIRATORY: HAVE YOU BEEN SICK IN THE PAST WEEK? NO . FEVER NO . FLU LIKE SYMPTOMS? NO . COUGH NO . INTEGUMENTARY: DO YOU HAVE ANY RASHES OR OPEN SORES? NO . ALLERGIC/IMMUNO: ARE YOU ALLERGIC TO SHELLFISH OR IV DYE? NO . ANY NEW ALLERGIES? NO . PSYCHIATRIC: DO YOU HAVE THOUGHTS OF HURTING YOURSELF OR SOMEONE ELSE? NO . ARE YOU ABUSED, NEGLECTED, OR IN AN UNSAFE ENVIRONMENT? NO . ENDOCRINOLOGY: ARE YOU DIABETIC? NO . OTHER: DO YOU NEED ANY PRESCRIPTIONS? YESPATIENT IS MOVING OUT OF THE AREA AND NEEDS ALL PRESCIPTIONS . IF YES, PLEASE LIST: ____ . ANY NEW PROBLEMS WITH YOUR MEDICATIONS? NO . WHEN DID YOU LAST EAT? ____ . WHEN DID YOU LAST DRINK? ____ . WHAT DID YOU LAST DRINK? ____ . NAME OF PERSON DRIVING YOU HOME? ____ . DO YOU HAVE ANY OTHER QUESTIONS OR CONCERNS NO . REVIEWED BY: PROVIDER: BERNA RAMIREZ MD . VITAL SIGNS WT 321.6 LBS, HT 72 IN, BMI 43.61 INDEX, BP 133/91 MM HG, HR 88 /MIN, RR 18 /MIN, TEMP 98.1 F, OXYGEN SAT % 97%, NA INITIALS SC 09:00. EXAMINATION : PATIENT IS ALERT O X 3 AND COOPERATIVE. TENDERNESS IN THE RIGHT CERVICAL AREA AND PARASPINAL MUSCLE GROUP. MRI OF THE CERVICAL SPINE DONE ON 11/16/15 SHOWS SPINAL FUSION AT C5-C7, SPONDYLOSIS AT C4-C5 THROUGH C7-T1, AND A DISC PROTRUSION AT C7-T1. 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 SHEA'S PAIN MANAGEMENT CASE. PATIENT WILL CONTINUE WITH THE SAME MEDICATION REGIME BEFORE. PATIENT DENIES ABUSE OF ANY MEDICATION, DENIES USE OF ILLEGAL SUBSTANCES, AND STATES THAT HE IS ONLY USING THE MEDICATION FOR PAIN MANAGEMENT. PATIENT USING THE OXYCODONE FOR SOMATIC PAIN AND TIZANIDINE FOR THE MUSCLE SPASMS. URINE TOXICOLOGY REPORT DONE ON 03/30/16 SHOWS CONSISTENT RESULTS WITH THE PATIENT'S MEDICATION LIST. PATIENT BROUGHT ALL MEDICATIONS TO TODAY'S VISIT IN THEIR ORIGINAL BOTTLES. PATIENT STATES THAT HE IS MOVING AND WILL RECEIVE A REFILL AT THIS TIME TO FIND ANOTHER PROVIDER. MR. SHEA IS AWARE HE WILL ONLY RECEIVE ONE REFILL AND THEN WILL HAVE TO FIND ANOTHER PROVIDER. PATIENT WILL SIGN A RELEASE FORM TODAY SO WE CAN TRANSFER RECORDS TO THE NEW FACILITY. I, SHAQ STREET, DOCUMENTED THE ABOVE INFORMATION ACTING A SCRIBE FOR DR. RAMIREZ. I HAVE REVIEWED THE ABOVE DOCUMENT, WRITTEN BY SHAQ CALDERA AND I VERIFY THAT IT IS ACCURATE. PROCEDURES PN WORKMANS' COMP OPINION IN YOUR OPINION, WAS THE INCIDENT THAT THE PATIENT DESCRIBED THE COMPETENT MEDICAL CAUSE OF THIS INJURY/ILLNESS? YES ARE THE PATIENT'S COMPLAINTS CONSISTENT WITH HIS/HER HISTORY OF THE INJURY/ILLNESS? YES IS THE PATIENT'S HISTORY OF THE INJURY/ILLNESS CONSISTENT WITH YOUR OBJECTIVE FINDING? YES WHAT IS THE PERCENTAGE OF TEMPORARY IMPAIRMENT? TOTAL = 100% IS THE PATIENT WORKING? NO DOCTOR ON SITE: BERNA NASH MD PROCEDURE CODES FA211 ESTABILISHED PATIENT [facility] FACILITY CHARGE G8427 DOC MEDS VERIFIED W/PT OR RE G8730 PAIN ASSESS POS TOOL F/U PLAN DOC DISPOSITION & COMMUNICATION FOLLOW UP CALL NEEDED ELECTRONICALLY SIGNED BY BERNA RAMIREZ MD ON 07/29/2016 AT 06:44 PM EDT DISCLAIMER : THIS IS A VISIT SUMMARY EXTRACTED FROM THE [employer] CHART. IT IS NOT A COPY OF THE [employer] PROGRESS NOTE. VANE
== END ==
LOC: M PAIN 08:40
PROVIDERS: ATTEND Anesthesiology
DX: M96.1 Postlaminectomy syndrome, not elsewhere classified (principal); M47.812 Spondylosis without myelopathy or radiculopathy, cervical region; M47.813 Spondylosis without myelopathy or radiculopathy, cervicothoracic region; Z79.891 Long term (current) use of opiate analgesic; Z88.5 Allergy status to narcotic agent; I10 Essential (primary) hypertension